=== PATIENT | male | born 1970 | race Two or more races ===

== ENCOUNTER 2024-05-31 09:40 | Inpatient (IN) | payer OTHER ==
[2024-05-31 10:16] VITALS: BMI 28.3
[2024-05-31] MEDS ORDERED: NICOTINE POLACRILEX 2 MG LOZENGE BC PRN (10:35)
[2024-05-31] MEDS ORDERED: BENZONATATE 200 MG CAPSULE PO PRN (10:35)
[2024-05-31] MEDS ORDERED: NICOTINE POLACRILEX 2 MG GUM BUC PRN (10:35)
[2024-05-31] MEDS ORDERED: BENZOCAINE/MENTHOL (CHLORASEPTIC ) LOZENGE MM PRN (10:35)
[2024-05-31] MEDS ORDERED: LOPERAMIDE HCL 2 MG CAPSULE PO PRN (10:35)
[2024-05-31] MEDS ORDERED: IBUPROFEN 400 MG TABLET (FP) PO PRN (10:35)
[2024-05-31] MEDS ORDERED: POLYETHYLENE GLYCOL (HEALTHYLAX) 3350 17 GM PACKET PO PRN (10:35)
[2024-05-31] MEDS ORDERED: P-EPHED 60MG/TRIPROLIDI 2.5MG TABLET PO PRN (10:35)
[2024-05-31] MEDS ORDERED: ONDANSETRON *ODT* 4 MG TABLET SL PRN (10:35)
[2024-05-31] MEDS ORDERED: guaiFENesin 600 MG TABLET.ER (FP) PO PRN (10:35)
[2024-05-31] MEDS ORDERED: MAGNESIUM HYDROX 2400MG/30ML ORAL SUSPENSION 30 ML CUP PO PRN (10:35)
[2024-05-31] MEDS ORDERED: IBUPROFEN 600 MG TABLET (FP) PO PRN (10:35)
[2024-05-31] MEDS ORDERED: ACETAMINOPHEN 325 MG TABLET (FP) PO PRN (10:35)
[2024-05-31] MEDS ORDERED: NALOXONE (NARCAN) HCL 4 MG/0.1 ML SPRAY NS PRN (10:35)
[2024-05-31] MEDS ORDERED: DICYCLOMINE HCL 10 MG CAPSULE PO PRN (10:35)
[2024-05-31] MEDS ORDERED: MAG HYDROX/AL HYDROX/SIMETH 30 ML UNIT-DOSE CUP PO PRN (10:35)
[2024-05-31] MEDS ORDERED: BISMUTH SUBSALICYLATE 524 MG/30 ML PO PRN (10:35)
[2024-05-31] MEDS ORDERED: diazePAM 5 MG TABLET PO PRN (10:37)
[2024-05-31] MEDS ORDERED: diazePAM 5 MG TABLET ONE (12:13)
[2024-05-31] MEDS: diazePAM 5 MG TABLET PO SCH (12:15)
[2024-05-31] MEDS: amLODIPine BESYLATE 5 MG TABLET (FP) PO SCH (12:45)
[2024-05-31] MEDS: THIAMINE 100 MG TABLET PO SCH (23:02)
[2024-05-31] MEDS: TAMSULOSIN HCL 0.4 MG CAP PO SCH (23:02)
[2024-05-31] MEDS: METHOCARBAMOL 500 MG TABLET PO PRN (23:03)
[2024-05-31] MEDS: MELATONIN 5 MG TABLETS PO SCH (23:03)
[2024-06-01] MEDS: QUEtiapine FUMARATE 50 MG TABLET PO SCH (10:09)
[2024-06-01] MEDS: PRENATAL VITAMINS W/ FOLIC ACID TABLET (FP) PO SCH (10:10)
[2024-06-01] MEDS: QUEtiapine FUMARATE 100 MG TABLET (FP) PO SCH (22:55)
[2024-06-02] MEDS: diazePAM 5 MG TABLET PO SCH (06:22)
[2024-06-02 06:39] VITALS: RESP 18
[2024-06-02 10:02] VITALS: BP 153/85; PULSE 85; TEMP 97.6
[2024-06-03] MEDS ORDERED: diazePAM 5 MG TABLET PO SCH (06:00)
[2024-06-04] MEDS ORDERED: diazePAM 5 MG TABLET PO ONE (06:00)
== END 2024-06-02 09:19 | disposition home or self-care (01) | DRG 774 ==
LOC: YASAS 09:40 → Y6N 12:16
PROVIDERS: ADMIT Allergy & Immunology; ATTEND Allergy & Immunology
PROC: HZ2ZZZZ Detoxification Services for Substance Abuse Treatment (ICD-10-PCS; principal; 2024-05-31)
DX: F10.230 Alcohol dependence with withdrawal, uncomplicated (principal); F14.20 Cocaine dependence, uncomplicated; F12.20 Cannabis dependence, uncomplicated; F17.213 Nicotine dependence, cigarettes, with withdrawal; F19.282 Other psychoactive substance dependence with psychoactive substance-induced sleep disorder; F19.24 Other psychoactive substance dependence with psychoactive substance-induced mood disorder; F31.9 Bipolar disorder, unspecified; I10 Essential (primary) hypertension; N40.0 Benign prostatic hyperplasia without lower urinary tract symptoms; Z88.0 Allergy status to penicillin
CPT/HCPCS: 80305; 80307; 93005; 93010